=== PATIENT | female | born 1965 | race African-American/Black ===

== ENCOUNTER 2020-06-30 10:21 | Outpatient (REF) | payer MEDICARE, MEDICAID, SELFPAY ==
[2020-06-30 11:51] LABS: Glucose Urine UA NEG (NEG); Leukocyte Esterase Urine NEG (NEG); Nitrite Urine NEG (NEG); PH 6.5 (5.0-8.0); Urine Blood NEG (NEG); Urine Ketones NEG (NEG); Urine Protein NEG (NEG-TRACE)
[2020-06-30 11:53] LABS: Appearance Urine HAZY; Color Urine YELLOW
== END 2020-06-30 10:22 | disposition home or self-care (01) ==
LOC: HO.HMGCLNP 10:21
PROVIDERS: Visit Provider Internal Medicine
DX: R30.0 Dysuria (principal)
CPT/HCPCS: 81003